=== PATIENT | male | born 1950 | race Caucasian/White ===

== ENCOUNTER → 2018-03-08 14:10 | Outpatient (CLI) | payer MEDICARE, MEDICAID, SELFPAY ==
--- NOTE | 2018-03-08 14:24 | DI.CT.S_ITS ---
PROCEDURE: CT CHEST WO CON INDICATIONS: COUGH TECHNIQUE: Noncontrast 5 mm thick sections acquired from the pulmonary apices to the posterior costophrenic angles. 7 mm thick coronal and sagittal MIP reformats were then acquired. For radiation dose reduction, the following was used: automated exposure control, adjustment of mA and/or kV according to patient size. COMPARISON: None. FINDINGS: Image quality: Excellent. Lungs and pleura: No acute air space opacities. 4 mm nodule noted in the posterior segment of the right upper lobe (series 2, image 17; series 5, image 49). 4 mm subpleural nodule noted in the right lung base (series 2, image 48; series 5, image 52. 6 mm subpleural nodule noted in the lateral periphery of the left lung base (series 2, image 48). Minimal centrilobular emphysematous changes noted in the lung apices, right greater than left. No pleural effusions or pneumothorax. Central and peripheral airways are patent and normal in caliber. Mediastinum: Heart size is normal. No pericardial effusion. No mediastinal adenopathy by size criteria. Thoracic aorta and central pulmonary arteries are normal in size. Esophagus is normal in caliber. No hiatal hernia. Bones and chest wall: No suspicious bony lesions. No vertebral body compression fractures. Spine degenerative disc disease and facet arthropathy.No axillary or supraclavicular adenopathy by size criteria. Thyroid gland is normal. Abdomen: Visualized upper abdominal solid organs and bowel loops appear normal in the absence of contrast. IMPRESSION: 1. Multiple small bilateral lung nodules. Largest nodule in the left lower lobe and measures 6 mm in maximum diameter. Recommend follow up CT scan in 6-12 months based on criteria outlined below. 2. Minimal bilateral lung centrilobular emphysema. 3. No areas of lung consolidation. 4. No pleural effusions. 5. No lymphadenopathy based on size criteria. Fleischner Society criteria for SOLID lung nodule followup. Nodule size (mm)Low-risk patientHigh-risk patient<6 (single or multiple)No routine followup.Optional CT at 12 months. 6-8 (single or multiple)CT at 6-12 months, then optional CT at 18-24 mo.CT at 6-12 months, then CT at 18-24 months. >8 (single)CT at 3 months, PET-CT, or biopsy. Same as for low-risk pts. >8 (multiple)CT at 3-6 months, then optional CT at 18-24 mo.CT at 3-6 months, then CT at 18-24 months. Recommendations do not apply to lung cancer screening, patients with immunosuppression, or patients with known primary cancer. Dictated by: Sarah Arciniega MD, PhD on 03/08/2018 at 15:13 Approved by: Sarah Arciniega MD, PhD on 03/08/2018 at 15:20
== END ==
PROVIDERS: PCP Family Medicine; Visit Provider Family Medicine
DX: R05 Cough (principal); R91.8 Other nonspecific abnormal finding of lung field
CPT/HCPCS: 71250

== ENCOUNTER → 2023-11-03 11:30 | Outpatient (CLI) | payer MEDICARE, MEDICAID, SELFPAY ==
--- NOTE | 2023-11-03 11:31 | DI.CT.S_ITS ---
PROCEDURE: CT LUNG LOW DOSE SCREENING INDICATIONS: Nicotine dependence, cigarettes, uncomplicated TECHNIQUE: Noncontrast 2.0-2.5 mm thick sections acquired from the pulmonary apices to the posterior costophrenic angles. 7 mm thick axial MIP, and 5 mm coronal and sagittal reformats were then acquired. For radiation dose reduction, the following was used: automated exposure control, adjustment of mA and/or kV according to patient size. COMPARISON: None. FINDINGS: Image quality: Diagnostic. Lower Neck: No enlarged lymph nodes. Thyroid: No thyroid nodules which require sonographic follow up, per consensus guidelines. Axillae: No enlarged lymph nodes. Chest Wall: Unremarkable. Bones: Osteopenia. No suspicious osseous lesion. Lungs and Pleura: Emphysematous lung changes.No pneumothorax or pleural effusions. No consolidation or suspicious nodules. Solid 5 millimeter right lower lobe juxtapleural nodule 245/3, benign. Solid 5 millimeter right lower lobe juxtapleural nodule 253/3, benign. Sub solid 3 millimeter right upper lobe nodule 119/3 Heart: Heart size is normal. No pericardial effusion. Thoracic Vessels: The aorta and pulmonary arteries demonstrate normal size. Mediastinum and Nani: No enlarged lymph nodes. Esophagus: No wall thickening. No hiatal hernia. Upper Abdomen: Atrophied pancreas. IMPRESSION: No suspicious pulmonary nodules. LUNG-RADS 2; continued annual screening, if eligible. Clinically Significant Non-pulmonary Findings: Atrophied pancreas Dictated by: Carlton Delgado M.D. on 11/03/2023 at 14:25 Approved by: Carlton Delgado M.D. on 11/03/2023 at 14:51
--- NOTE | 2023-11-03 11:31 | DI.US.S_ITS ---
PROCEDURE: US ABD AORTA ANEURYSM SCREEN INDICATIONS: Nicotine dependence, cigarettes, uncomplicated TECHNIQUE: Real time scanning was performed of the aorta and iliac arteries, with image documentation. COMPARISON: None. FINDINGS: Aorta: Proximal aortic diameter measures 2.6 cm. Mid-aorta measures 2.8 cm. Distal aortic diameter is 1.8 cm. Iliac arteries: Right common iliac artery measures 1 cm. Left common iliac artery measures 1 cm. IMPRESSION: Negative for aneurysm. Dictated by: Justice Salas M.D. on 11/03/2023 at 11:46 Approved by: Justice Salas M.D. on 11/03/2023 at 11:47
== END ==
PROVIDERS: PCP Family Medicine; Referring Provider Family Medicine; Visit Provider Family Medicine
DX: Z13.6 Encounter for screening for cardiovascular disorders (principal); Z12.2 Encounter for screening for malignant neoplasm of respiratory organs; F17.210 Nicotine dependence, cigarettes, uncomplicated; K86.89 Other specified diseases of pancreas
CPT/HCPCS: 71271; 76706